=== PATIENT | female | born 1985 | race Caucasian/White ===

== ENCOUNTER 2023-08-31 09:09 | Outpatient (RCR) | payer OTHER, SELFPAY | END 2023-08-31 23:59 | disposition home or self-care (01) | LOC: RPT 09:09 | PROVIDERS: ATTENDING PHYSICIAN Internal Medicine Rheumatology; FAMILY PHYSICIAN Student in an Organized Health Care Education/Training Program | DX: R53.1 Weakness (principal) | CPT/HCPCS: 97110; 97112; 97530 ==

== ENCOUNTER 2023-09-14 09:01 | Outpatient (RCR) | payer OTHER, SELFPAY | END 2023-09-14 10:22 | disposition home or self-care (01) | LOC: RPT 09:01 | PROVIDERS: ATTENDING PHYSICIAN Internal Medicine Rheumatology; FAMILY PHYSICIAN Student in an Organized Health Care Education/Training Program | DX: R53.1 Weakness (principal); Z73.6 Limitation of activities due to disability | CPT/HCPCS: 97110; 97112; 97116 ==

== ENCOUNTER → 2023-10-24 15:19 | Outpatient (REF) | payer OTHER, SELFPAY | LOC: HWRAD 15:19 | PROVIDERS: ATTENDING PHYSICIAN Internal Medicine; FAMILY PHYSICIAN Student in an Organized Health Care Education/Training Program | DX: R10.9 Unspecified abdominal pain (principal) | CPT/HCPCS: 74150 ==

== ENCOUNTER → 2025-01-25 14:22 | Outpatient (REF) | payer OTHER, SELFPAY | LOC: HWRAD 14:22 | PROVIDERS: ATTENDING PHYSICIAN Student in an Organized Health Care Education/Training Program | DX: R14.0 Abdominal distension (gaseous) (principal) | CPT/HCPCS: 76700 ==

== ENCOUNTER → 2025-07-23 13:23 | Outpatient (REF) | payer OTHER, SELFPAY | LOC: HWRAD 13:23 | PROVIDERS: ATTENDING PHYSICIAN Internal Medicine Endocrinology, Diabetes & Metabolism; FAMILY PHYSICIAN Student in an Organized Health Care Education/Training Program | DX: E28.39 Other primary ovarian failure (principal); Q93.59 Other deletions of part of a chromosome | CPT/HCPCS: 77080 ==